=== PATIENT | male | born 1960 | race Caucasian/White ===

== ENCOUNTER 2019-11-29 11:32 | Observation (INO) ==
[2019-11-29] MEDS ORDERED: Naloxone 0.4 MG/ML INJ IVP PRN (14:27)
[2019-11-29] MEDS ORDERED: Ondansetron 4 MG/2 ML VIAL IVP PRN (14:27)
[2019-11-29] MEDS ORDERED: Ibuprofen 400 MG TABLET PO PRN (14:58)
[2019-11-29] MEDS ORDERED: Gadolinium Contrast Agent (WT Based) IV PRN (15:45)
[2019-11-29] MEDS: Pantoprazole 40 MG VIAL IVP SCH (17:38)
[2019-11-29] MEDS: Piperacillin/Tazobactam 3.375 GM in 0.9 % Sodium Chloride Mini Bag 100 ML IVPB SCH (17:38)
[2019-11-29] MEDS: 0.9 % Sodium Chloride 1,000 ML IVC SCH (17:39)
[2019-11-30 01:56] LABS: Basophils # 0.1 K/mcL (0.0-0.2); Basophils % 1.2 %; Eosinophils # 0.1 K/mcL (0.0-0.6); Eosinophils % 2.1 %; Hematocrit 42.2 % (37.5-50.1); Hemoglobin 13.6 g/dL (12.9-16.9); Immature Granulocytes % 0.5 % (0-4); Lymphocytes # 1.3 K/mcL (0.6-4.6); Lymphocytes % 19.3 %; Mean Corpuscular HGB Conc 32.2 g/dL (31.6-35.5); Mean Corpuscular Hemoglobin 29.9 pg (28.0-33.3); Mean Corpuscular Volume 92.7 fL (83.0-100.0); Mean Platelet Volume 10.3 fL (9.4-12.4); Monocytes # 0.6 K/mcL (0.0-1.3); Monocytes % 9.2 %; Neutrophils # 4.5 K/mcL (1.6-8.9); Platelet Count 243 K/mcL (140-400); Red Blood Count 4.55 M/mcL (4.19-5.50); Red Cell Distribution Width 13.6 % (11.5-14.5); Segmented Neutrophils % 67.7 %; White Blood Count 6.6 K/mcL (4.3-11.1)
[2019-11-30 02:00] LABS: Prothrombin Time 11.5 Seconds (9.4-12.1)
[2019-11-30 02:20] LABS: Albumin 3.6 g/dL (3.5-5.7); Albumin/Globulin Ratio 1.5 (1.1-2.2); Bilirubin,Direct 4.4 mg/dL (0.0-0.2); Bilirubin,Indirect 2.7 mg/dL (0.0-1.0); Bilirubin,Total 7.1 mg/dL (0.3-1.0); Globulin 2.4 g/dL (2.4-3.5); Magnesium 2.1 mg/dL (1.6-2.6); Phosphorous 4.2 mg/dL (2.7-4.5)
[2019-11-30 02:21] LABS: BUN/Creatinine Ratio 10 (6-26); Blood Urea Nitrogen 11 mg/dL (6-20); Calcium 8.5 mg/dL (8.6-10.3); Carbon Dioxide 25 mEq/L (23-29); Chloride 106 mEq/L (98-107); Glucose 134 mg/dL (70-105); Osmolality,Calculated 287 (280-300); Potassium 3.9 mEq/L (3.5-5.1); Sodium 138 mEq/L (136-145); eGFR For African Americans > 60 (> 60); eGFR For Non-African Americans > 60 (> 60)
[2019-11-30 02:41] LABS: Chol/HDL Ratio 9.2 (0-4.9)
[2019-11-30] MEDS: Piperacillin/Tazobactam 3.375 GM in 0.9 % Sodium Chloride Mini Bag 100 ML IVPB SCH ×4 (03:08→23:56)
[2019-11-30] MEDS: 0.9 % Sodium Chloride 1,000 ML IVC SCH (03:08)
[2019-11-30] MEDS: Pantoprazole 40 MG VIAL IVP SCH (08:33)
[2019-11-30] MEDS ORDERED: Lidocaine -MPF 2% 2 ML VIAL ONE (11:57)
[2019-11-30] MEDS ORDERED: Ondansetron 4 MG/2 ML VIAL ONE (11:57)
[2019-11-30] MEDS ORDERED: Dexamethasone 4 MG/ML VIAL ONE (11:57)
[2019-11-30] MEDS ORDERED: *HR* FentaNYL (PF) 100 MCG/2 ML VIAL ONE (11:57)
[2019-11-30] MEDS ORDERED: *HR* Rocuronium Bromide 50 MG/5 ML VIAL ONE (11:57)
[2019-11-30] MEDS ORDERED: *HR* Propofol 200 MG/20 ML VIAL IVP ONE (11:57)
[2019-11-30] MEDS ORDERED: Lidocaine -MPF 4% 5 ML AMPUL ONE (12:04)
[2019-11-30] MEDS ORDERED: Ondansetron 4 MG/2 ML VIAL IVP ONE (12:45)
[2019-11-30] MEDS ORDERED: *HR* Meperidine 25 MG/ML SYRINGE IVP PRN (12:45)
[2019-11-30] MEDS ORDERED: *HR* Promethazine 25 MG/ML VIAL IVP PRN (12:45)
[2019-11-30] MEDS ORDERED: *HR* OxyCODONE Immed Rel 5 MG TABLET PO PRN (12:45)
[2019-11-30] MEDS ORDERED: Indomethacin 50 MG SUPP.RECT RC ONE (13:23)
[2019-11-30] MEDS ORDERED: Ringers Solution, Lactated 1,000 ML ONE (14:14)
[2019-12-01] MEDS: Piperacillin/Tazobactam 3.375 GM in 0.9 % Sodium Chloride Mini Bag 100 ML IVPB SCH (07:32)
[2019-12-01] MEDS: Pantoprazole 40 MG VIAL IVP SCH (07:33)
[2019-12-01] MEDS ORDERED: *HR* Rocuronium Bromide 50 MG/5 ML VIAL ONE (07:49)
[2019-12-01] MEDS ORDERED: *HR* FentaNYL (PF) 100 MCG/2 ML VIAL ONE (07:49)
[2019-12-01] MEDS ORDERED: *HR* Propofol 200 MG/20 ML VIAL IVP ONE (07:49)
[2019-12-01] MEDS ORDERED: Ondansetron 4 MG/2 ML VIAL ONE (07:49)
[2019-12-01] MEDS ORDERED: *HR* Midazolam HCl 2 MG/2 ML VIAL ONE (07:49)
[2019-12-01] MEDS ORDERED: *HR* Succinylcholine 200 MG/10 ML VIAL IVP ONE (07:49)
[2019-12-01] MEDS ORDERED: Dexamethasone 4 MG/ML VIAL ONE (07:49)
[2019-12-01] MEDS ORDERED: Lidocaine -MPF 2% 2 ML VIAL ONE (07:49)
[2019-12-01] MEDS ORDERED: *HR* Promethazine 25 MG/ML VIAL IVP PRN ×3 (08:06→10:04)
[2019-12-01] MEDS ORDERED: Ondansetron 4 MG/2 ML VIAL IVP ONE ×2 (08:06→10:04)
[2019-12-01] MEDS ORDERED: *HR* HYDROmorphone PF 0.5 MG/0.5 ML SYRINGE IVP PRN ×2 (08:06→10:04)
[2019-12-01] MEDS ORDERED: Famotidine 20 MG/2 ML VIAL ONE (08:07)
[2019-12-01] MEDS ORDERED: *HR* PHENYLEPHRINE 1,000 MCG/10 ML SYRINGE IVP ONE (08:39)
[2019-12-01 08:52] LABS: Albumin 3.9 g/dL (3.5-5.7); Albumin/Globulin Ratio 1.3 (1.1-2.2); Bilirubin,Direct 1.8 mg/dL (0.0-0.2); Bilirubin,Indirect 3.3 mg/dL (0.0-1.0); Bilirubin,Total 5.1 mg/dL (0.3-1.0); Globulin 2.9 g/dL (2.4-3.5); Total Protein 6.8 g/dL (6.4-8.9)
[2019-12-01] MEDS ORDERED: Neostigmine Methylsulfate 3 MG/3 ML SYRINGE ONE (09:01)
[2019-12-01] MEDS ORDERED: *HR* HYDROMORPHONE 2 MG/ML VIAL ONE (09:08)
[2019-12-01] MEDS ORDERED: EPHEDrine 50 MG/ML VIAL ONE (09:14)
[2019-12-01] MEDS ORDERED: *HR* OxyCODONE Immed Rel 5 MG TABLET PO PRN (10:04)
[2019-12-01] MEDS ORDERED: Naloxone 0.4 MG/ML INJ IVP PRN (10:04)
[2019-12-01] MEDS ORDERED: Ibuprofen 400 MG TABLET PO PRN (10:04)
[2019-12-01] MEDS ORDERED: Ondansetron 4 MG/2 ML VIAL IVP PRN (10:04)
[2019-12-01] MEDS ORDERED: *HR* Meperidine 25 MG/ML SYRINGE IVP PRN (10:04)
[2019-12-01] MEDS ORDERED: Gadolinium Contrast Agent (WT Based) IV PRN (10:04)
[2019-12-01 12:40] VITALS: BP 104/66
[2019-12-01] MEDS ORDERED: cefOXitin 1,000 MG, 0.9 % Sodium Chloride 1,000 ML IR ONE ×2 (15:00)
[2019-12-01] MEDS ORDERED: Piperacillin/Tazobactam 3.375 GM in 0.9 % Sodium Chloride Mini Bag 100 ML IVPB SCH (16:00)
[2019-12-02] MEDS ORDERED: cefOXitin 1,000 MG, 0.9 % Sodium Chloride 1,000 ML IR ONE ×2 (06:00)
[2019-12-02] MEDS ORDERED: Pantoprazole 40 MG VIAL IVP SCH (09:00)
== END 2019-12-01 15:59 | disposition home or self-care (01) ==
LOC: 3ANU → SUATTDRO 13:17
PROVIDERS: ADMIT Internal Medicine; ATTEND Internal Medicine